=== PATIENT | male | born 1955 | race Caucasian/White ===

== ENCOUNTER 2016-04-23 08:54 | Emergency (ER) | payer OTHER ==
[~2016-04-23] VITALS: Ht 154.9 cm; Wt 106.8 kg
[2016-04-23] MEDS ORDERED: IBUPROFEN 600 MG TABLET PO ONE (09:30)
[2016-04-23 11:38] VITALS: BP 135/85
== END 2016-04-23 12:18 | disposition home or self-care (01) ==
LOC: EMS 09:02 → EEVIPCON 09:02 → EMS 12:18
DX: S46.911A Strain of unspecified muscle, fascia and tendon at shoulder and upper arm level, right arm, initial encounter (principal); S20.219A Contusion of unspecified front wall of thorax, initial encounter; S00.81XA Abrasion of other part of head, initial encounter; F17.210 Nicotine dependence, cigarettes, uncomplicated; X58.XXXA Exposure to other specified factors, initial encounter; Y93.89 Activity, other specified; Y92.89 Other specified places as the place of occurrence of the external cause; Y99.8 Other external cause status
CPT/HCPCS: 93005; 99284